=== PATIENT | male | born 2000 | race African-American/Black ===

== ENCOUNTER 2021-06-30 03:33 | Emergency (ER) | payer OTHER ==
[~2021-06-30] VITALS: Ht 177.8 cm; Wt 68.0 kg
--- NOTE | ~2021-06-30 | EMS ---
[facility] [address] [place] [address] EMS Patient Care Report Name: GEORGIA DREW Room #: DEP KOREY Lowe#: [id number] Admission: 06/30/21 Attend Phys: Discharge: 06/30/21 Date of : 89 Report #: [id number] THIS REPORT FOR: //name// Report Transmitted: 07/01/2021 08:38 EMS Care Summary [place], [place]/[facility] Incident [id number] @ 06/30/2021 03:15 Incident Location [address] Patient ANEUDY BRONSON Male, Patient Address Patient History Bipolar II Disorder, Patient Allergies No known allergies, Patient Medications Unknown, Chief Complaint PSYCHOSIS Disposition Transported No Lights/[place] Dispatch Reason Sick Person Transported To [facility] Narrative UPON ARRIVAL WE FOUND OUR PSYCHOTIC 21 YEAR OLD MALE PATIENT CRAWLING ON THE PAVEMENT IN FRONT OF [facility] COMPLAINING OF THE SENSATION THAT HIS BONES ARE GOING TO ERUPT OUT OF HIS BODY SINCE ACCIDENTALLY CONSUMING A PORK HOTDOG 30 MINS AGO. THE PATIENT PATIENT STATES HE IS WORSHIP AND IS NOT ABLE TO CONSUME PORK. HE PROVIDED SEVERAL DIFFERENT NAMES AND , SO WE ARE UNSURE OF HIS TRUE IDENTITY. THE PATIENT DENIES ANY SI OR HI AND REFUSES TO ANSWER WHEN ASKED IF HE HAS CONSUMES DRUGS OR ETOH. WE TRANSPORTED THE PATIENT TO [facility] [place] [address] EMS Patient Care Report Name: GEORGIA DREW Room #: DEP ER [facility]#: [id number] Admission: 06/30/21 Attend Phys: Discharge: 06/30/21 Date of : 89 Report #: [id number] [facility]. Initial Vitals @03:22P: 106,R: 18,BP: 126/82,Pain: 0/10,GCS: 15,Glucose: 84,SpO2: 99,Revised Trauma: 12, @03:31P: 108,R: 18,BP: 130/80,Pain: 0/10,GCS: 15,SpO2: 97,Revised Trauma: 12, Assessments @03:21MENTAL:Person Oriented,Place Oriented,Other,Time Oriented,Event Oriented,SKIN:HEENT:Eyes: Left Pupil: 4-mm,Eyes: Right Pupil: 4-mm,Head/Face: No Abnormalities,Neck/Airway: No Abnormalities,LUNG SOUNDS:General: No Abnormalities,ABDOMEN:General: No Abnormalities,PELVIS//GI:No Abnormalities,EXTREMITIES:Left Arm: No Abnormalities,Right Arm: No Abnormalities,Left Leg: No Abnormalities,Right Leg: No Abnormalities,PULSE:Radial: 2+ Normal,NEURO:No Abnormalities, Impression Behavioral/psychiatric episode Procedures @03:21ALS AssessmentResponse: UnchangedSucceeded Timeline 03:14,Call Received 03:14,Dispatch Notified 03:15,Dispatched 03:17,En Route 03:20,On Scene 03:21,At Patient 03:21,ALS Assessment,Response: UnchangedSucceeded, 03:22,BP: 126/82 M,PULSE: 106,RR: 18 R,SPO2: 99 Ox,ETCO2: ,B,PAIN: 0,GCS: 15, 03:24,Depart Scene 03:31,BP: 130/80 M,PULSE: 108,RR: 18 R,SPO2: 97 Ox,ETCO2: ,BG: ,PAIN: 0,GCS: 15, 03:31,At Destination 03:41,Call Closed Disclaimer v1.1 Copyright 2020 [employer] This EMS Care Summary contains data elements from the applicable legal record (which may be displayed differently). It is designed to provide pertinent information for the following purposes: continuity of care, clinical quality, and state data reporting. The complete legal record is available to ED staff and administrators of the receiving hospital in [employer] Patient Tracker. All data is provided "as is."
[2021-06-30 03:46] VITALS: BP 131/70
== END 2021-06-30 05:30 | disposition home or self-care (01) ==
LOC: ER 03:33
DX: M25.562 Pain in left knee (principal)